=== PATIENT | male | born 1965 | race African-American/Black ===

== ENCOUNTER 2017-12-12 15:57 | Emergency (ER) | payer BC ==
[~2017-12-12] VITALS: Ht 175.3 cm; Wt 89.9 kg
[2017-12-12 16:02] VITALS: BP 138/75; PULSE 95; RESP 16; TEMP 98; O2SAT 97
[2017-12-12] MEDS ORDERED: SERT-129 PO (16:23)
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
[2017-12-12] MEDS ORDERED: BACITRACIN/POLYMYXIN B 15 GM TUBE TOPICAL ONE (16:45)
[2017-12-12] MEDS ORDERED: MORPHINE SULFATE 8 MG/ML INJ IM ONE (16:45)
[2017-12-12] MEDS ORDERED: HYDR-3516 PO (17:01)
[2017-12-12] MEDS ORDERED: BACT800T5 PO (17:40)
== END 2017-12-12 17:49 | disposition home or self-care (01) ==
LOC: PHEFT 15:57
DX: T24.211A Burn of second degree of right thigh, initial encounter (principal); T24.212A Burn of second degree of left thigh, initial encounter; T24.232A Burn of second degree of left lower leg, initial encounter; T31.0 Burns involving less than 10% of body surface; X12.XXXA Contact with other hot fluids, initial encounter; Y93.89 Activity, other specified
CPT/HCPCS: 96372; 99284; J2270